=== PATIENT | male | born 1955 | race Caucasian/White ===

== ENCOUNTER 2024-12-18 12:09 | Inpatient (IN) | payer MEDICARE ==
[2024-12-18] MEDS ORDERED: Magnesium Hydroxide 400 MG/5 ML Susp 30 ML Cup PO PRN (12:58)
[2024-12-18] MEDS ORDERED: Naloxone 0.4 MG/ML SDV IVPUSH PRN (12:58)
[2024-12-18] MEDS ORDERED: Sennosides/Docusate Sodium 50-8.6 MG Tab PO PRN (12:58)
[2024-12-18] MEDS ORDERED: Ondansetron 4 MG Tab.DIS PO PRN (12:58)
[2024-12-18] MEDS ORDERED: Ondansetron 4 MG/2 ML SDV IV PRN (12:58)
[2024-12-18 13:16] LABS: PLATELET COUNT,PLT 142.0 K/uL (130-375); RED BLOOD CELL COUNT 4.65 M/uL (4.14-5.76); WHITE BLOOD CELL COUNT,WBC 10.9 K/uL (3.2-11.0)
[2024-12-18 13:31] LABS: BLOOD UREA NITROGEN,BUN 16 mg/dL (7-18); CARBON DIOXIDE,CO2 27 mmol/L (21-32); CHLORIDE,CL 104 mmol/L (100-108); CREATININE 1.0 mg/dL (0.8-1.3); ESTIMATED GFR 80 mL/min (>60); GLUCOSE RANDOM 104 mg/dL (74-106); POTASSIUM,K 4.3 mmol/L (3.6-5.2); SODIUM,NA 140 mmol/L (140-148)
[2024-12-18] MEDS ORDERED: Propofol 200 MG/20 ML SDV ONE ×2 (16:08→18:48)
[2024-12-18] MEDS ORDERED: fentaNYL 100 MCG/2 ML SDV ONE ×2 (16:08→19:03)
[2024-12-18] MEDS ORDERED: Midazolam 1 MG/ML 2 ML SDV ONE (16:08)
[2024-12-18] MEDS ORDERED: Lactated Ringers 1,000 ML ONE (19:18)
[2024-12-19 05:43] LABS: PLATELET COUNT,PLT 134.0 K/uL (130-375); RED BLOOD CELL COUNT 4.4 M/uL (4.14-5.76); WHITE BLOOD CELL COUNT,WBC 11.2 K/uL (3.2-11.0)
[2024-12-19 06:08] LABS: BLOOD UREA NITROGEN,BUN 13.0 mg/dL (7-18); CARBON DIOXIDE,CO2 26.0 mmol/L (21-32); CHLORIDE,CL 105.0 mmol/L (100-108); CREATININE 0.9 mg/dL (0.8-1.3); EST CRCL DRUG DOSING (CG) 72.83 mL/min; ESTIMATED GFR 91.0 mL/min (>60); GLUCOSE RANDOM 120.0 mg/dL (74-106); POTASSIUM,K 4.6 mmol/L (3.6-5.2); SODIUM,NA 137.0 mmol/L (140-148)
[2024-12-19] MEDS: Sennosides/Docusate Sodium 50-8.6 MG Tab PO SCH (12:39)
[2024-12-20] MEDS: Aspirin 325 MG Tab.EC PO SCH (09:37)
== END 2024-12-20 10:25 | disposition home or self-care (01) | DRG 482 ==
LOC: JP.MS 12:09
PROVIDERS: ADMIT Internal Medicine; ATTEND Internal Medicine
PROC: 0QS634Z Reposition Right Upper Femur with Internal Fixation Device, Percutaneous Approach (ICD-10-PCS; principal; 2024-12-18 14:00)
DX: S72.001A Fracture of unspecified part of neck of right femur, initial encounter for closed fracture (principal); I25.10 Atherosclerotic heart disease of native coronary artery without angina pectoris; H54.7 Unspecified visual loss; Z95.5 Presence of coronary angioplasty implant and graft; Z79.82 Long term (current) use of aspirin; Z79.899 Other long term (current) drug therapy
CPT/HCPCS: 01230-QZ; 36415; 73501-26-RT; 73501-RT; 76000; 80048; 85027; 97110-GP; 97161-GP; 97165-GO; 97530-GP; 99222; 99231; 99238; A9270-GY; C1713; C1769; J0665; J0690; J1171; J2250; J2704; J3010; J7030; J7120